=== PATIENT | female | born 1980 | race Caucasian/White ===

== ENCOUNTER 2017-04-07 19:07 | Emergency (ER) | payer BC, OTHER ==
[2017-04-07 19:25] VITALS: RESP 14; TEMP 97.9; O2SAT 97
[2017-04-07] MEDS ORDERED: ONDANSETRON 4 MG/2 ML VIAL IVP ONE ×2 (19:25→20:30)
[2017-04-07] MEDS ORDERED: NS 1,000 ML IV ONE ×2 (19:35→20:30)
[2017-04-07 19:44] LABS: % IMMATURE GRANULYOCYTES 0.2 % (0.0-1.1); ABSOLUTE IMMATURE GRANULOCYTES 0.01 10^3/uL (0.00-0.10); ADD DIFF? NO; ADD MORPH? NO; ADD SCAN? NO; ATYPICAL LYMPHOCYTE FLAG 10 (0-99); FRAGMENT RBC FLAG 0 (0-99); HEMATOCRIT 44.6 % (38.0-47.0); LEFT SHIFT FLG 0 (0-99); LIPEMIA HEMOLYSIS FLAG 80 (0-99); MEAN CELL HEMOGLOBIN 31.1 pg (27.9-34.1); MEAN CELL HEMOGLOBIN CONCENTR. 33.6 g/dL (32.4-36.7); MEAN CELL VOLUME 92.3 fL (81.5-99.8); MEAN PLATELET VOLUME 11.3 fL (8.7-11.7); PLATELET CLUMPS FLAG 0 (0-99); PLATELET COUNT 126 10^3/uL (150-400); RED BLOOD CELL COUNT 4.83 10^6/uL (4.18-5.33); RED CELL DISTRIBUTION WIDTH 13.6 % (11.5-15.2)
[2017-04-07 19:51] LABS: ALANINE AMINOTRANSFERASE 88 IU/L (9-52); ALBUMIN 3.9 g/dL (3.5-5.0); ALKALINE PHOSPHATASE 53 IU/L (38-126); ANION GAP 12 mEq/L (8-16); ASPARTATE AMINOTRANSFERASE 76 IU/L (14-46); BILIRUBIN,TOTAL 0.8 mg/dL (0.1-1.4); BILIRUBIN-CONJUGATED 0.4 mg/dL (0.0-0.5); BILIRUBIN-UNCONJUGATED 0.4 mg/dL (0.0-1.1); CALCIUM 8.5 mg/dL (8.5-10.4); CARBON DIOXIDE 26 mEq/l (22-31); CHLORIDE 103 mEq/L (97-110); CREATININE 0.8 mg/dL (0.6-1.0); GLOMERULAR FILTRATION RATE > 60; GLUCOSE 90 mg/dL (70-100); POTASSIUM 3.6 mEq/L (3.5-5.2); SODIUM 141 mEq/L (134-144); TOTAL PROTEIN 6.4 g/dL (6.3-8.2)
[2017-04-07] MEDS ORDERED: ONDANSETRON 4 MG/2 ML VIAL ONE (20:26)
[2017-04-07 20:49] LABS: COLOR YELLOW; LEUKOCYTE ESTERASE,URINE NEGATIVE (NEGATIVE); NITRITE,URINE NEGATIVE (NEGATIVE); PH,URINE 6.5 (5.0-7.5)
[2017-04-07 21:00] LABS: MUCUS 2+ /lpf (NONE-1+); RBC,URINE OCCASIONAL /hpf (0-3); WBC,URINE OCCASIONAL /hpf (0-3)
[2017-04-07 21:01] LABS: BACTERIA 1+ /hpf (NONE SEEN)
--- NOTE | 2017-04-07 21:13 | EDPHY ---
H & P Time Seen by Provider: 04/07/17 19:12 HPI/ROS: CHIEF COMPLAINT: Vomiting diarrhea HISTORY OF PRESENT ILLNESS: 36-year-old female presents with reports of intermittent and ongoing vomiting diarrhea for the last week. Patient participated in a triathlon in the [place] 1 week ago. She did participate in an open water swim and notes that she may have been swallowing some water. The next day she woke feeling poorly, with nausea and vomiting. Patient continue with nausea and vomiting as well as a low-grade fever for 2 days. She also developed diarrhea. Mid week, the patient felt well enough to return to work for a day, however, she then again developed nausea, vomiting and some diarrhea. She has not had any hematemesis, or blood in her stools. Minimal abdominal pain. No other ill contacts. Patient denies any recent travel outside [facility]. No camping while in the [place]. She does have a history of Giardia many years ago. Patient is otherwise well. No chest pain, shortness of breath, urinary complaints, headache, lightheadedness. She does report feels dehydrated. REVIEW OF SYSTEMS: Aside from elements discussed in the HPI, a comprehensive 10-point review of systems was reviewed and is negative. PAST MEDICAL HISTORY: Mild adrenal insufficiency, patient takes hydrocortisone daily. SOCIAL HISTORY: Works at [employer] ([email or web address] Nonsmoker. Occasional alcohol. VITAL SIGNS Reviewed by me. GENERAL: Well-developed, well-nourished, resting comfortably in no respiratory distress. HEENT: Atraumatic. Eyes: No icterus, no injection. Mouth: Dry lips, slightly dry mucous membranes. No erythema or lesions. Neck: supple with no adenopathy. LUNGS: Clear to auscultation bilaterally, no wheezes, rhonchi or rales. CARDIAC: Regular rate and rhythm, no rubs, murmurs or gallops. ABDOMEN: Soft, nontender, nondistended, bowel sounds normal. BACK: No CVA tenderness. EXTREMITIES: No trauma. No edema. Range of motion is normal throughout. NEURO: Alert and oriented, grossly nonfocal. SKIN: Warm and dry, no rash. PSYCHIATRIC: Normal mentation, no agitation. Smoking Status: Never smoked Constitutional: Initial Vital Signs Temperature (C) 36.6 C 04/07/17 19:23 Heart Rate 75 04/07/17 19:23 Respiratory Rate 14 04/07/17 19:23 Blood Pressure 118/80 04/07/17 19:23 O2 Sat (%) 97 04/07/17 19:23 O2 Delivery Mode Room Air Allergies/Adverse Reactions: erythromycin base [Erythromycin Base] Allergy (Verified 04/07/17 19:22) metronidazole [From Flagyl] Allergy (Verified 04/07/17 19:22) SEVERE HIVES Metronidazole HCl [From Flagyl] Allergy (Verified 04/07/17 19:22) SEVERE HIVES Home Medications: Medication Instructions Recorded Ciprofloxacin [Cipro] 500 mg PO BID #6 tab 04/07/17 Hydrocortisone 04/07/17 Ondansetron Odt [Zofran Odt 4 mg 4 mg PO Q6-8PRN PRN #6 tab 04/07/17 (*)] Medical Decision Making ED Course/Re-evaluation: Patient received a L of normal saline as well as Zofran. 4 Mg of Zofran did not provide significant nausea relief. Patient received an additional 4 mg of Zofran as well as an additional L of fluid. Laboratory evaluation is largely unremarkable with the exception of mildly elevated AST and ALT. Urinalysis demonstrates specific gravity of less than 1.005 and 1+ ketones. Patient is unable to provide a stool sample in the emergency department. Given her history of 7 days worth of intermittent nausea, vomiting, diarrhea, patient will be started on ciprofloxacin. She was encouraged to provide us stool sample for all possible. She was instructed to return directly to [facility] with a stool sample if possible. She was feeling better upon discharge. She was discharged prescription for Zofran as well as a prepack of Zofran and a prescription of ciprofloxacin. Differential Diagnosis: Differential diagnosis of the patient's nausea, vomiting and diarrhea was considered including but not limited to gastroenteritis, gallstone disease, irritable bowel, colitis, bacterial gastroenteritis, Giardia infection, hepatitis. - Data Points Laboratory Results: Laboratory Results 04/07/17 19:29 04/07/17 19:29 04/07/17 04/07/17 04/07/17 20:44 19:29 19:29 WBC RBC Hgb Hct MCV MCH MCHC RDW Plt Count MPV Neut % (Auto) Lymph % (Auto) [place] % (Auto) Eos % (Auto) Baso % (Auto) Nucleat RBC Rel Count Absolute Neuts (auto) Absolute Lymphs (auto) Absolute Monos (auto) Absolute Eos (auto) Absolute Basos (auto) Absolute Nucleated RBC Immature Gran % Immature Gran # Sodium 141 mEq/L mEq/L (134-144) Potassium 3.6 mEq/L mEq/L (3.5-5.2) Chloride 103 mEq/L mEq/L (97-110) Carbon Dioxide 26 mEq/l mEq/l (22-31) Anion Gap 12 mEq/L mEq/L (8-16) BUN 14 mg/dL mg/dL (7-23) Creatinine 0.8 mg/dL mg/dL (0.6-1.0) Estimated GFR > 60 Glucose 90 mg/dL mg/dL (70-100) Calcium 8.5 mg/dL mg/dL (8.5-10.4) Total Bilirubin 0.8 mg/dL mg/dL (0.1-1.4) Conjugated Bilirubin 0.4 mg/dL mg/dL (0.0-0.5) Unconjugated Bilirubin 0.4 mg/dL mg/dL (0.0-1.1) AST 76 IU/L H IU/L (14-46) ALT 88 IU/L H IU/L (9-52) Alkaline Phosphatase 53 IU/L IU/L (38-126) Total Protein 6.4 g/dL g/dL (6.3-8.2) Albumin 3.9 g/dL g/dL (3.5-5.0) Lipase 119 IU/L IU/L (23-300) Beta HCG, Qual NEGATIVE Urine Color YELLOW Urine Appearance CLEAR Urine pH 6.5 (5.0-7.5) Ur Specific [place] <= 1.005 (1.002-1.030) Urine Protein NEGATIVE (NEGATIVE) Urine Ketones 1+ H (NEGATIVE) Urine Blood NEGATIVE (NEGATIVE) Urine Nitrate NEGATIVE (NEGATIVE) Urine Bilirubin NEGATIVE (NEGATIVE) Urine Urobilinogen 0.2 EU EU (0.2-1.0) Ur Leukocyte Esterase NEGATIVE (NEGATIVE) Urine RBC OCCASIONAL /hpf /hpf (0-3) Urine WBC OCCASIONAL /hpf /hpf (0-3) Ur Epithelial Cells 2+ /lpf H /lpf (NONE-1+) Urine Bacteria 1+ /hpf H /hpf (NONE SEEN) Urine Mucus 2+ /lpf H /lpf (NONE-1+) Urine Glucose NEGATIVE (NEGATIVE) 04/07/17 19:29 WBC 4.20 10^3/uL 10^3/uL (3.80-9.50) RBC 4.83 10^6/uL 10^6/uL (4.18-5.33) Hgb 15.0 g/dL g/dL (12.6-16.3) Hct 44.6 % % (38.0-47.0) MCV 92.3 fL fL (81.5-99.8) MCH 31.1 pg pg (27.9-34.1) MCHC 33.6 g/dL g/dL (32.4-36.7) RDW 13.6 % % (11.5-15.2) Plt Count 126 10^3/uL L 10^3/uL (150-400) MPV 11.3 fL fL (8.7-11.7) Neut % (Auto) 49.3 % % (39.3-74.2) Lymph % (Auto) 43.6 % % (15.0-45.0) [place] % (Auto) 6.2 % % (4.5-13.0) Eos % (Auto) 0.5 % L % (0.6-7.6) Baso % (Auto) 0.2 % L % (0.3-1.7) Nucleat RBC Rel Count 0.0 % % (0.0-0.2) Absolute Neuts (auto) 2.07 10^3/uL 10^3/uL (1.70-6.50) Absolute Lymphs (auto) 1.83 10^3/uL 10^3/uL (1.00-3.00) Absolute Monos (auto) 0.26 10^3/uL L 10^3/uL (0.30-0.80) Absolute Eos (auto) 0.02 10^3/uL L 10^3/uL (0.03-0.40) Absolute Basos (auto) 0.01 10^3/uL L 10^3/uL (0.02-0.10) Absolute Nucleated RBC 0.00 10^3/uL 10^3/uL (0-0.01) Immature Gran % 0.2 % % (0.0-1.1) Immature Gran # 0.01 10^3/uL 10^3/uL (0.00-0.10) Sodium Potassium Chloride Carbon Dioxide Anion Gap BUN Creatinine Estimated GFR Glucose Calcium Total Bilirubin Conjugated Bilirubin Unconjugated Bilirubin AST ALT Alkaline Phosphatase Total Protein Albumin Lipase Beta HCG, Qual Urine Color Urine Appearance Urine pH Ur Specific [place] Urine Protein Urine Ketones Urine Blood Urine Nitrate Urine Bilirubin Urine Urobilinogen Ur Leukocyte Esterase Urine RBC Urine WBC Ur Epithelial Cells Urine Bacteria Urine Mucus Urine Glucose Medications Given: Discontinued Medications Ondansetron HCl (Zofran) 4 mg IVP EDNOW ONE Stop: 04/07/17 19:26 Last Admin: 04/07/17 19:35 Dose: 4 mg Departure - Departure Disposition: Home, Routine, Self-Care Clinical Impression: Diarrhea, Vomiting Condition: Good Instructions: Gastroenteritis (ED), Dehydration (ED), Giardiasis (ED) Additional Instructions: For your vomiting and diarrhea, I suggested you start with a bland diet and advance as tolerated. This means start with clear liquids such as water, Gatorade, juice, flat non- caffeinated soda. If you tolerate clear liquids, then you may add bland foods such as bananas, rice, or toast. If you do not have any worsening of your symptoms, you may begin to resume a regular diet. Okay to take Zofran as needed for recurrent nausea vomiting. Please provide a stool sample and take it to the [facility]. You been given a prescription for ciprofloxacin. Begin taking this after you provide a stool sample. If you're not improving as expected or if you are worsening despite the above treatment, please follow up with her primary care physician or return to the emergency department. I would also suggest that you have your liver function tests rechecked by Dr. Hylton. Referrals: MELISSA HYLTON [Non Staff Provider ()] - As per Instructions Prescriptions: Ciprofloxacin [Cipro] 500 mg PO BID #6 tab Ondansetron Odt [Zofran Odt 4 mg (*)] 4 mg PO Q6-8PRN PRN #6 tab PRN Reason: nausea
[2017-04-07] MEDS ORDERED: ONDANSETRON 4MG PREPACK#2 BTL TAKEHOME ONE (21:31)
[2017-04-07 22:04] VITALS: BP 122/76; PULSE 72
[2017-04-08 08:38] LABS: OCCULT BLOOD FECES NEGATIVE (NEGATIVE)
== END 2017-04-07 21:55 | disposition home or self-care (01) ==
LOC: CED 19:07
DX: R19.7 Diarrhea, unspecified (principal); R11.10 Vomiting, unspecified
CPT/HCPCS: 80048-PO; 80076-PO; 81003-PO; 81015-PO; 82270-PO; 83690-PO; 84703-PO; 85025-PO; 96374; J2405